=== PATIENT | male | born 1955 | race Caucasian/White ===

== ENCOUNTER 2019-06-10 17:10 | Emergency (ER) | payer MEDICARE ==
[2019-06-10 17:53] LABS: CHLORIDE,CL 104 mmol/L (98-107); SODIUM,NA 139 mmol/L (136-145)
[2019-06-10] MEDS ORDERED: Aspirin 81 MG Tab.Chew PO ONE (18:45)
--- NOTE | 2019-06-10 18:59 | EDM.PDOC ---
ED HPI GENERAL MEDICAL PROBLEM - General Chief Complaint: Cardiovascular Problem Stated Complaint: chest pain Time Seen by Provider: 06/10/19 17:15 Source of Information: Reports: Patient History Limitations: Reports: No Limitations - History of Present Illness INITIAL COMMENTS - FREE TEXT/NARRATIVE: Pt with intermittent chest pain tierra when exerts himself Was seen at [facility] in [facility] for the chest pain. At the time, pt was pain free. Scheduled for outpt stress test Pt went home and shoveled snow and pain was 8/ 10 Upon presentation to ER, pt is pain free Onset: Gradual Duration: Day(s):, Intermittent Location: Reports: Chest Improves with: Reports: Rest Worsens with: Reports: Other (Activity or exertion) - Related Data Allergies Allergy/AdvReac Type Severity Reaction Status Date / Time No Known Allergies Allergy Verified 06/10/19 17:11 Home Meds: Home Meds carBAMazepine [Tegretol] 200 mg PO BID 06/10/19 [History] Past Medical History HEENT History: Reports: Impaired Vision - Past Surgical History Head Surgeries/Procedures: Reports: Shunt HEENT Surgical History: Reports: Eye Surgery GI Surgical History: Reports: Other (See Below) Other GI Surgeries/Procedures: bowel surgeries Other Neurological Surgeries/Procedures: Cranial surgery with skull plate. Bilateral cheek surgeries. left jaw surgery. Lower back fx- surgery on low back and upper back. Social & Family History - Tobacco Use Smoking Status *Q: Current Every Day Smoker Years of Tobacco use: 50 Packs/Tins Daily: 1 - Caffeine Use Caffeine Use: Reports: Coffee ED ROS GENERAL - Review of Systems Review Of Systems: See Below Constitutional: Reports: No Symptoms HEENT: Reports: No Symptoms Respiratory: Reports: No Symptoms Cardiovascular: Reports: Chest Pain GI/Abdominal: Reports: No Symptoms Musculoskeletal: Reports: No Symptoms ED EXAM, GENERAL - Physical Exam Exam: See Below Exam Limited By: No Limitations General Appearance: No Apparent Distress Neck: Supple Respiratory/Chest: Lungs Clear Cardiovascular: Regular Rate, Rhythm GI/Abdominal: Non-Tender Extremities: No Pedal Edema Course - Vital Signs Last Recorded V/S: Last Vital Signs Temp 37.4 C 06/10/19 17:21 Pulse 82 06/10/19 17:21 Resp 20 06/10/19 17:21 BP 133/63 06/10/19 17:21 Pulse Ox 95 06/10/19 17:21 - Orders/Labs/Meds Orders: Active Orders 24 hr Category Date Time Status EKG Documentation Completion [RC] ASDIRECTED Care 06/10/19 17:15 Active Chest 2V [CR] Stat Exams 06/10/19 17:15 Taken Heparin Sodium/D5W [Heparin 25,000 Units in D5W 500 ML] Med 06/10/19 19:00 Active 25,000 units in 500 ml IV TITRATE Medication Orders Heparin Sodium/Dextrose (Heparin 25,000 Units In D5w 500 Ml) 25,000 units in 500 mls @ 20 mls/hr IV TITRATE ROMELIA; Protocol Labs: Laboratory Tests 06/10/19 06/10/19 Range/Units 17:20 17:20 WBC 8.6 (4.0-10.2) K/uL RBC 4.32 L (4.33-5.41) M/uL Hgb 13.9 (13.1-16.8) g/dL Hct 40.9 (39.0-49.0) % MCV 94.7 (84.0-98.0) fL MCH 32.2 (28.2-33.3) pg MCHC 34.0 (31.7-36.0) g/dL RDW 12.1 (11.2-14.1) % Plt Count 262 (150-350) K/uL Neut % (Auto) 62.6 (45.0-80.0) % Lymph % (Auto) 26.4 (10.0-50.0) % [place] % (Auto) 8.6 (2.0-14.0) % Eos % (Auto) 1.8 (0.0-5.0) % Baso % (Auto) 0.6 (0.0-2.0) % Neut # (Auto) 5.36 (1.40-7.00) K/uL Lymph # (Auto) 2.26 (0.50-3.50) K/uL [place] # (Auto) 0.74 (0.00-1.00) K/uL Eos # (Auto) 0.15 (0.00-0.50) K/uL Baso # (Auto) 0.05 (0.00-0.20) K/uL Sodium 139 (136-145) mmol/L Potassium 3.5 (3.5-5.1) mmol/L Chloride 104 (98-107) mmol/L Carbon Dioxide 28.2 (21.0-32.0) mmol/L BUN 16 (7-18) mg/dL Creatinine 1.12 (0.51-1.17) mg/dL Est Cr Clr Drug Dosing TNP Estimated GFR (MDRD) > 60 mL/min Glucose 107 H (74-106) mg/dL Calcium 8.2 L (8.5-10.1) mg/dL Total Bilirubin 0.2 (0.2-1.0) mg/dL AST 19 (15-37) U/L ALT 21 (12-78) U/L Alkaline Phosphatase 135 H (46-116) IU/L Troponin I 0.294 H* (0.000-0.056) ng/mL Total Protein 7.2 (6.4-8.2) g/dL Albumin 3.5 (3.4-5.0) g/dL Meds: Medications Generic Name Dose Route Start Last Admin Trade Name Nicholas PRN Reason Stop Dose Admin Heparin Sodium/Dextrose 25,000 units in 500 mls @ 20 mls/hr 06/10/19 19:00 Heparin 25,000 Units In D5w 500 Ml IV TITRATE ROMELIA Protocol 1,000 UNITS/HR Discontinued Medications Generic Name Dose Route Start Last Admin Trade Name Freq PRN Reason Stop Dose Admin Aspirin 324 mg 06/10/19 18:45 06/10/19 18:49 Aspirin PO 06/10/19 18:46 324 mg ONETIME ONE Administration - Re-Assessments/Exams Free Text/Narrative Re-Assessment/Exam: 06/10/19 18:57 See lab, CXR and EKG Elevated troponin to 0.3 D/W Dr Pruitt On-call hospitalist [facility] Pt given ASa 324 mg PO and Heparin bolus 4000 units and drip at 1000 units/hr Transfer via [facility] ambulance Departure - Departure Time of Disposition: 19:00 Disposition: DC/Tfer to Acute Hospital 02 Reason for Transfer *Q: Primary PCI Indicated Clinical Impression: NSTEMI (non-ST elevated myocardial infarction) Referrals: PCP,Unknown [Primary Care Provider] - Sepsis Event Note - Evaluation Sepsis Screening Result: No Definite Risk - Focused Exam Vital Signs: Vital Signs Temp Pulse Resp BP Pulse Ox 06/10/19 17:21 37.4 C 82 20 133/63 95 Date Exam was Performed: 06/10/19 Time Exam was Performed: 18:54 - My Orders Last 24 Hours: My Active Orders 06/10/19 17:15 EKG Documentation Completion [RC] ASDIRECTED Chest 2V [CR] Stat 06/10/19 19:00 Heparin Sodium/D5W [Heparin 25,000 Units in D5W 500 ML] 25,000 units in 500 ml IV TITRATE - Assessment/Plan Last 24 Hours: My Active Orders 06/10/19 17:15 EKG Documentation Completion [RC] ASDIRECTED Chest 2V [CR] Stat 06/10/19 19:00 Heparin Sodium/D5W [Heparin 25,000 Units in D5W 500 ML] 25,000 units in 500 ml IV TITRATE
[2019-06-10] MEDS ORDERED: Heparin Sodium/D5W 25,000 UNITS/500 ML BAG IV SCH (19:00)
[2019-06-10] MEDS ORDERED: Heparin Sodium 5,000 Units/ML Vial IVPUSH ONE (19:14)
== END 2019-06-10 19:41 ==
LOC: LL.ED 17:10
DX: I21.4 Non-ST elevation (NSTEMI) myocardial infarction (principal); R79.89 Other specified abnormal findings of blood chemistry; F17.210 Nicotine dependence, cigarettes, uncomplicated
CPT/HCPCS: 36415; 71046; 80053; 84484; 85025; 93005; 96365; 99284; 99285; A9270; J1644

== ENCOUNTER 2019-07-17 07:33 | Emergency (ER) | payer MEDICARE ==
[2019-07-17 08:27] LABS: CHLORIDE,CL 102 mmol/L (98-107); SODIUM,NA 136 mmol/L (136-145)
[2019-07-17] MEDS ORDERED: Heparin Sodium 5,000 Units/ML Vial IVPUSH ONE (08:28)
[2019-07-17] MEDS ORDERED: Heparin Sodium/D5W 25,000 UNITS/500 ML BAG IV SCH (08:30)
--- NOTE | 2019-07-17 08:38 | EDM.PDOC ---
ED HPI GENERAL MEDICAL PROBLEM - General Chief Complaint: Chest Pain Stated Complaint: chest pain Time Seen by Provider: 07/17/19 07:53 Source of Information: Reports: Patient History Limitations: Reports: No Limitations - History of Present Illness INITIAL COMMENTS - FREE TEXT/NARRATIVE: Pt states he rode his bicycle from home to the [place] and was sitting playing cards with friends when had sudden onset of left chest pain Pain was 8/ 10 Took NTG X 3 and pain decreased to 2/10 Pt presented to ER and pain now resolved Pt has hx/o heart cath with stent in mid-LAD for 99% occlusion on Pt did take his ASA and Brelinta this AM Onset: Today, Sudden Chest Pain Score (Numeric/FACES): 2 - Related Data Allergies Allergy/AdvReac Type Severity Reaction Status Date / Time No Known Allergies Allergy Verified 06/10/19 17:11 Home Meds: Home Meds Aspirin 81 mg PO DAILY 07/17/19 [History] Metoprolol Tartrate [Lopressor] 25 mg PO BID 07/17/19 [History] Nitroglycerin 1 tab PO 07/17/19 [History] Omeprazole Magnesium [Prilosec Otc] 1 tab PO DAILY 07/17/19 [History] Ticagrelor [Brilinta] 90 mg PO BID 07/17/19 [History] Past Medical History HEENT History: Reports: Impaired Vision - Past Surgical History Head Surgeries/Procedures: Reports: Shunt HEENT Surgical History: Reports: Eye Surgery GI Surgical History: Reports: Other (See Below) Other GI Surgeries/Procedures: bowel surgeries Other Neurological Surgeries/Procedures: Cranial surgery with skull plate. Bilateral cheek surgeries. left jaw surgery. Lower back fx- surgery on low back and upper back. Social & Family History - Tobacco Use Smoking Status *Q: Former Smoker Years of Tobacco use: 51 Used Tobacco, but Quit: Yes Month/Year Tobacco Last Used: 06/2019 - Caffeine Use Caffeine Use: Reports: Coffee - Recreational Drug Use Recreational Drug Use: No ED ROS GENERAL - Review of Systems Review Of Systems: See Below HEENT: Reports: No Symptoms Respiratory: Reports: No Symptoms Cardiovascular: Reports: Chest Pain GI/Abdominal: Reports: No Symptoms Musculoskeletal: Reports: No Symptoms ED EXAM, GENERAL - Physical Exam Exam: See Below Exam Limited By: No Limitations General Appearance: Alert, No Apparent Distress Throat/Mouth: Normal Oropharynx Neck: Supple Respiratory/Chest: Lungs Clear Cardiovascular: Regular Rate, Rhythm Extremities: No Pedal Edema Course - Vital Signs Last Recorded V/S: Last Vital Signs Temp 96.9 F 07/17/19 07:37 Pulse 56 L 07/17/19 07:50 Resp 16 07/17/19 07:50 BP 101/66 07/17/19 07:50 Pulse Ox 99 07/17/19 07:50 - Orders/Labs/Meds Orders: Active Orders 24 hr Category Date Time Status EKG Documentation Completion [RC] ASDIRECTED Care 07/17/19 07:41 Active EKG Documentation Completion [RC] ASDIRECTED Care 07/17/19 07:53 Active Chest 1V Frontal [CR] Stat Exams 07/17/19 07:42 Taken CK W CKMB [CHEM] Stat Lab 07/17/19 07:44 Received CKMB [CHEM] Stat Lab 07/17/19 07:44 Received CMP [COMPREHENSIVE METABOLIC PN,CMP] [CHEM] Stat Lab 07/17/19 07:44 Received TROPONIN I [CHEM] Stat Lab 07/17/19 07:44 Received Heparin Sodium/D5W [Heparin 25,000 Units in D5W 500 ML] Med 07/17/19 08:30 Active 25,000 units in 500 ml IV TITRATE EKG 12 Lead [EK] Routine Ther 07/17/19 07:40 Ordered EKG 12 Lead [EK] Routine Ther 07/17/19 07:53 Ordered Medication Orders Heparin Sodium/Dextrose (Heparin 25,000 Units In D5w 500 Ml) 25,000 units in 500 mls @ 16.329 mls/hr IV TITRATE ROMELIA; Protocol Labs: Laboratory Tests 07/17/19 Range/Units 07:44 WBC 7.6 (4.0-10.2) K/uL RBC 4.43 (4.33-5.41) M/uL Hgb 14.1 (13.1-16.8) g/dL Hct 41.2 (39.0-49.0) % MCV 93.0 (84.0-98.0) fL MCH 31.8 (28.2-33.3) pg MCHC 34.2 (31.7-36.0) g/dL RDW 12.2 (11.2-14.1) % Plt Count 308 (150-350) K/uL Neut % (Auto) 69.3 (45.0-80.0) % Lymph % (Auto) 17.8 (10.0-50.0) % [place] % (Auto) 8.8 (2.0-14.0) % Eos % (Auto) 3.3 (0.0-5.0) % Baso % (Auto) 0.8 (0.0-2.0) % Neut # (Auto) 5.26 (1.40-7.00) K/uL Lymph # (Auto) 1.35 (0.50-3.50) K/uL [place] # (Auto) 0.67 (0.00-1.00) K/uL Eos # (Auto) 0.25 (0.00-0.50) K/uL Baso # (Auto) 0.06 (0.00-0.20) K/uL Meds: Medications Generic Name Dose Route Start Last Admin Trade Name Freq PRN Reason Stop Dose Admin Heparin Sodium/Dextrose 25,000 units in 500 mls @ 16.329 mls/hr 07/17/19 08: 30 Heparin 25,000 Units In D5w 500 Ml IV TITRATE ROMELIA Protocol 12 UNITS/KG/HR Discontinued Medications Generic Name Dose Route Start Last Admin Trade Name Freq PRN Reason Stop Dose Admin Heparin Sodium (Porcine) 4,000 units 07/17/19 08:28 Heparin Sodium IVPUSH 07/17/19 08:29 .BOLUS ONE - Re-Assessments/Exams Free Text/Narrative Re-Assessment/Exam: 07/17/19 08:36 Pt currently pain free D/W On-call cardiology [facility] Will start Heparin bolus and drip D/W Dr Garza On-call hospitalist [facility] Will accept in transfer Transfer via ambulance Departure - Departure Time of Disposition: 08:40 Disposition: DC/Tfer to Acute Hospital 02 Reason for Transfer *Q: Primary PCI Indicated Clinical Impression: Unstable angina Referrals: Matty Smith PA-C [Primary Care Provider] - Sepsis Event Note - Evaluation Sepsis Screening Result: No Definite Risk - Focused Exam Vital Signs: Vital Signs Temp Pulse Resp BP Pulse Ox 07/17/19 07:50 56 L 16 101/66 99 07/17/19 07:37 96.9 F 58 L 16 124/70 95 Date Exam was Performed: 07/17/19 Time Exam was Performed: 08:33 - My Orders Last 24 Hours: My Active Orders 07/17/19 07:40 EKG 12 Lead [EK] Routine 07/17/19 07:41 EKG Documentation Completion [RC] ASDIRECTED 07/17/19 07:42 Chest 1V Frontal [CR] Stat 07/17/19 07:44 CK W CKMB [CHEM] Stat CKMB [CHEM] Stat CMP [COMPREHENSIVE METABOLIC PN,CMP] [CHEM] Stat TROPONIN I [CHEM] Stat 07/17/19 07:53 EKG Documentation Completion [RC] ASDIRECTED EKG 12 Lead [EK] Routine 07/17/19 08:30 Heparin Sodium/D5W [Heparin 25,000 Units in D5W 500 ML] 25,000 units in 500 ml IV TITRATE - Assessment/Plan Last 24 Hours: My Active Orders 07/17/19 07:40 EKG 12 Lead [EK] Routine 07/17/19 07:41 EKG Documentation Completion [RC] ASDIRECTED 07/17/19 07:42 Chest 1V Frontal [CR] Stat 07/17/19 07:44 CK W CKMB [CHEM] Stat CKMB [CHEM] Stat CMP [COMPREHENSIVE METABOLIC PN,CMP] [CHEM] Stat TROPONIN I [CHEM] Stat 07/17/19 07:53 EKG Documentation Completion [RC] ASDIRECTED EKG 12 Lead [EK] Routine 07/17/19 08:30 Heparin Sodium/D5W [Heparin 25,000 Units in D5W 500 ML] 25,000 units in 500 ml IV TITRATE
== END 2019-07-17 08:35 ==
LOC: LL.ED 07:33
DX: I20.0 Unstable angina (principal); Z79.82 Long term (current) use of aspirin; Z87.891 Personal history of nicotine dependence
CPT/HCPCS: 36415; 71045; 80053; 82550; 82553; 84484; 85025; 93005; 96374; 99284; 99285-25; J1644